=== PATIENT | female | born 1975 | race Caucasian/White ===

== ENCOUNTER 2017-04-01 11:53 | Emergency (ER) | payer BC ==
[2017-04-01 12:14] VITALS: BP 148/85; TEMP 98.3; O2SAT 100
--- NOTE | 2017-04-01 12:20 | ED.PDOC ---
History of Present Illness - General Chief Complaint: Lower Extremity Injury Time Seen by Provider: 04/01/17 12:01 Source: patient Exam Limitations: no limitations - History of Present Illness Initial Comments: the patient is a 41-year-old female presenting to the emergency room secondary to right lateral ankle sprain present for approximately one day. The patient injured it on a water toy in the [place]. There is swelling over the lateral malleolus on the right. No pain over the medial malleolus or fifth metatarsal. She is neurovascularly preserved. No proximal tibial or fibular pain. No other deformity. Range of motion appears preserved. Timing/Duration: 24 hours Severity: moderate Improving Factors: immobilization Worsening Factors: movement Associated Symptoms: denies symptoms Allergies/Adverse Reactions: Allergies NO KNOWN ALLERGY Allergy (Verified 04/01/17 12:06) Home Medications: Ambulatory Orders [id number]-Yjad-Lfuxwnnzju [Fioricet] 1 ea PO Q8H PRN #21 tab 04/01/17 Chlorzoxazone 500 mg PO TID PRN 04/01/17 Review of Systems - Review of Systems Constitutional: States: no symptoms reported EENTM: States: no symptoms reported Respiratory: States: no symptoms reported Cardiology: States: no symptoms reported Gastrointestinal/Abdominal: States: no symptoms reported Genitourinary: States: no symptoms reported Musculoskeletal: States: see HPI Skin: States: no symptoms reported Neurological: States: no symptoms reported Endocrine: States: no symptoms reported All other Systems: No Change from Baseline Past Medical History (General) - Patient Medical History Hx Stroke: No Hx Congestive Heart Failure: No Hx Diabetes: No Hx Cancer: No Hx Hepatitis C: No Surgical History: tonsillectomy - Vaccination History Hx Tetanus, Diphtheria Vaccination: Yes Hx Influenza Vaccination: No Hx Pneumococcal Vaccination: No - Social History Hx Tobacco Use: No Hx Chewing Tobacco Use: No Hx Alcohol Use: Yes - Occas Hx Substance Use: No Hx Substance Use Treatment: No Hx Depression: No Feels Threatened In Home Enviroment: No Feels Threatened In a Relationship: No Hx Physical Abuse: No Hx Emotional Abuse: No Hx Suspected Abuse: No - Female History Patient is a Female of Child Bearing Age (10 -59 yrs old): Yes Patient : No Family Medical History - Family History Grandparents Family History: Unknown Physical Exam - Physical Exam General Appearance: Alert, Comfortable, No apparent distress Eye Exam: bilateral normal Ears, Nose, Throat: hearing grossly normal Neck: full range of motion Respiratory: no respiratory distress, no accessory muscle use Cardiovascular/Chest: normal peripheral pulses, no edema Peripheral Pulses: dorsalis pedis,right: 2+, dorsalis pedis,left: 2+, posterior tibialis,right: 2+, posterior tibialis,left: 2+ Extremity: normal range of motion, no calf tenderness, normal capillary refill, other - ee history of present illness. Ankle mortise appears intact. 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 She will be placed in a walking boot for the next week at least. She needs to be reevaluated by her primary care doctor at that time for clearance from the boot. Aleve twice daily with food can be taken for discomfort. She will also be written for Fioricet for as needed use. It is possible to have a small crack in the bone and not be seen this early after injury. If pain is persisting or worsening after a week then a repeat x- ray may be warranted. ER warnings were given. - EKG/XRAY/CT CT Ordered: No CT Interpretation Call Back: No Departure - Departure Clinical Impression: Right ankle sprain Qualifiers: Encounter type: initial encounter Involved ligament of ankle: unspecified ligament Qualified Code(s): S93.401A - Sprain of unspecified ligament of right ankle, initial encounter ICD-10 Supporting Text: lateral Disposition: Discharge to Home or Self Care Condition: Fair Departure Forms: ED Discharge - Pt. Copy, Patient Portal Self Enrollment Diet: regular diet Activity: no pushing/pulling with affected limb Prescriptions: Igtuomkdqfmls-Jdom-Yqmuipvtir [Fioricet] 1 ea PO Q8H PRN #21 tab PRN Reason: Pain Home Medications: Ambulatory Orders Zvjkfwfgxciat-Lbyz-Qxnwdjsewk [Fioricet] 1 ea PO Q8H PRN #21 tab 04/01/17 Chlorzoxazone 500 mg PO TID PRN 04/01/17 Additional Instructions: the patient is a 41-year-old female presenting with what is most likely a right lateral ankle sprain. She will be placed in a walking boot for the next week at least. She needs to be reevaluated by her primary care doctor at that time for clearance from the boot. Aleve twice daily with food can be taken for discomfort. She will also be written for Fioricet for as needed use. It is possible to have a small crack in the bone and not be seen this early after injury. If pain is persisting or worsening after a week then a repeat x- ray may be warranted. ER warnings were given.
--- NOTE | 2017-04-01 12:24 | RAD ---
EXAM DESCRIPTION: Ankle,Right 3 Views CLINICAL HISTORY: Lateral ankle pain. One day after injury FINDINGS/ IMPRESSION: Ankle mortise is symmetric. No fracture or osteochondral lesion Marked lateral soft tissue swelling Electronically signed by: Jewel Rubio MD 04/01/2017 12:23 PM CDT
== END 2017-04-01 12:39 | disposition home or self-care (01) ==
LOC: ER 11:53
DX: S93.401A Sprain of unspecified ligament of right ankle, initial encounter (principal); X58.XXXA Exposure to other specified factors, initial encounter; Y92.828 Other wilderness area as the place of occurrence of the external cause